=== PATIENT | female | born 1970 | race Caucasian/White ===

== ENCOUNTER → 2019-06-21 | Outpatient (CLI) | payer OTHER ==
[~2019-06-21] VITALS: Ht 162.6 cm; Wt 72.7 kg
[~2019-06-21] MED LIST: ACHD5005 PO; CALC1TAB4 PO; ESTR0.5T3 PO; ESTR1TAB24 PO; LACT1CAP39 PO; LEVO50TA6 PO; LIDOCAINE 1% INJ 20 ML 20 ML VIAL INJ ONE; TRIA1TAB3 PO
--- NOTE | 2019-06-21 14:09 | Diagnostic Imaging Report ---
INDICATION: Prominent left axillary lymph node. Patient is status post ultrasound-guided biopsy. TECHNIQUE: Unilateral left 2D MLO and exaggerated CC mammography was performed post procedure. FINDINGS: There are some calcifications throughout the left breast. There are some biopsy changes in the left axilla. The marker clip is not well seen on these radiographs. IMPRESSION: Status post left axillary lymph node biopsy. Pathology results are currently pending. Dictated by: Dictated on workstation # [id number]
--- NOTE | 2019-06-21 15:26 | Diagnostic Imaging Report ---
INDICATION: Left breast mass. Patient presents for biopsy. FINDINGS: Patient was brought to the procedure room and placed on table in the supine position. Ultrasound imaging over the left breast and axilla was performed to evaluate appropriate entry site. Left breast was then prepped and draped in usual sterile fashion. Small amount of 1% lidocaine was utilized for local anesthesia. The hand-held mammotome vacuum-assisted biopsy device, 13-gauge, was advanced and placed with its biopsy chamber along the inferior margin of the echogenic mass at the 2 o'clock location of the left breast, 13 cm from the nipple. This is presumably an enlarged lymph node. Total of three core biopsies were obtained. Device was removed. A localizer clip was then deployed. Hemostasis was obtained using manual compression. Patient tolerated the procedure well. IMPRESSION: Successful ultrasound-guided core biopsy of the echogenic mass in the upper outer left breast utilizing a vacuum-assisted mammotome hand-held device. Pathology results are currently pending. Dictated by: Dictated on workstation # [id number]
== END ==
LOC: RAD 12:13
PROVIDERS: ATTEND Surgery
DX: N63.20 Unspecified lump in the left breast, unspecified quadrant (principal)
CPT/HCPCS: 19083